=== PATIENT | female | born 2000 | race Caucasian/White ===

== ENCOUNTER 2020-12-27 07:43 | Emergency (ER) | payer OTHER ==
[~2020-12-27 07:43] MED LIST: BENTYL 20MG TAB20 MG PO; CEFUROXIME500 MG PO; IBUPROFEN800 MG PO; MACROBID 100 M100 MG PO; PRENATAL TABLE1 EAC1 PO; PRENATAL VITAM1 EAC3 PO; ZOFRAN ODT 4 MG4 MG SL; ZOFRAN4 MG PO
== END 2020-12-27 09:14 | disposition home or self-care (01) ==
LOC: ER1 07:43
DX: T17.928A Food in respiratory tract, part unspecified causing other injury, initial encounter (principal); Z88.0 Allergy status to penicillin; W45.8XXA Other foreign body or object entering through skin, initial encounter
CPT/HCPCS: 99283

== ENCOUNTER 2020-12-30 14:51 | Emergency (ER) | payer OTHER | END 2020-12-30 17:25 | disposition home or self-care (01) | LOC: ER1 14:51 | DX: F41.0 Panic disorder [episodic paroxysmal anxiety] (principal); Z20.822 Contact with and (suspected) exposure to COVID-19 | CPT/HCPCS: 0240U; 87081; 87880; 99283 ==

== ENCOUNTER 2021-08-03 17:51 | Emergency (ER) | payer OTHER ==
[2021-08-03 18:42] LABS: HEMOGLOBIN 14.6 gm/dl (12.3-15.3); RED BLOOD COUNT 4.64 M/UL (4.00-5.10); WHITE BLOOD COUNT 19.2 K/UL (4.5-11.0)
[2021-08-03 18:59] LABS: BUN/CREATININE RATIO 12 (0-10)
[2021-08-03] MEDS ORDERED: VIBRAMYCIN100 MG PO (22:58)
== END 2021-08-03 23:21 | disposition home or self-care (01) ==
LOC: ER1 17:51
PROVIDERS: Family Medicine
DX: N12 Tubulo-interstitial nephritis, not specified as acute or chronic (principal); F17.290 Nicotine dependence, other tobacco product, uncomplicated; Z88.0 Allergy status to penicillin
CPT/HCPCS: 80053; 81001; 84703; 85025; 87086; 99284

== ENCOUNTER 2021-08-23 13:38 | Inpatient (IN) | payer OTHER ==
[~2021-08-23] VITALS: Ht 157.5 cm; Wt 77.1 kg
[~2021-08-23 13:38] MED LIST changes: +VIBRAMYCIN100 MG PO
[2021-08-23 14:38] LABS: HEMOGLOBIN 13.7 gm/dl (12.3-15.3); RED BLOOD COUNT 4.43 M/UL (4.00-5.10); WHITE BLOOD COUNT 17.6 K/UL (4.5-11.0)
[2021-08-23 15:01] LABS: BUN/CREATININE RATIO 13 (0-10)
[2021-08-24 07:14] LABS: HEMOGLOBIN 11.8 gm/dl (12.3-15.3)
[2021-08-24 07:16] LABS: RED BLOOD COUNT 3.83 M/UL (4.00-5.10); WHITE BLOOD COUNT 13.1 K/UL (4.5-11.0)
[2021-08-24 07:38] LABS: BUN/CREATININE RATIO 8 (0-10)
[2021-08-25 07:38] LABS: HEMOGLOBIN 10.9 gm/dl (12.3-15.3); RED BLOOD COUNT 3.7 M/UL (4.00-5.10)
[2021-08-25 07:41] LABS: WHITE BLOOD COUNT 8.2 K/UL (4.5-11.0)
[2021-08-25 07:55] LABS: BUN/CREATININE RATIO 12 (0-10)
[2021-08-25] MEDS ORDERED: LEVOFLOXACIN750 MG PO (10:55)
== END 2021-08-25 14:43 | disposition home or self-care (01) | DRG 872 ==
LOC: ER1 13:38 → CDU 17:38 → M/S 22:43
PROVIDERS: Physician Assistant; Physician Assistant Medical; ADMIT Internal Medicine
DX: A41.9 Sepsis, unspecified organism (principal); N10 Acute pyelonephritis; E87.1 Hypo-osmolality and hyponatremia; Q89.8 Other specified congenital malformations; Z20.822 Contact with and (suspected) exposure to COVID-19; E87.6 Hypokalemia; E86.1 Hypovolemia; N20.0 Calculus of kidney; F17.210 Nicotine dependence, cigarettes, uncomplicated; Z98.891 History of uterine scar from previous surgery; Z88.0 Allergy status to penicillin
CPT/HCPCS: 80048; 80053; 80307; 81001; 83605; 84703; 85025; 86140; 87040; 87086; 93005; 96374; 96375; 99285; J1650; J1885; J1956; J2405; Q9967; U0002

== ENCOUNTER → 2022-03-21 | Emergency (ER) | payer OTHER ==
[~2022-03-21] MED LIST changes: +LEVOFLOXACIN750 MG PO
== END | disposition left against medical advice (07) ==
LOC: ER1 21:48
DX: Z53.21 Procedure and treatment not carried out due to patient leaving prior to being seen by health care provider (principal)

== ENCOUNTER 2022-04-24 18:13 | Emergency (ER) | payer OTHER ==
[2022-04-24 20:09] LABS: HEMOGLOBIN 15.5 gm/dl (12.3-15.3); RED BLOOD COUNT 5.07 M/UL (4.00-5.10); WHITE BLOOD COUNT 12.6 K/UL (4.5-11.0)
[2022-04-24 20:33] LABS: BUN/CREATININE RATIO 16 (0-10)
[2022-04-24] MEDS ORDERED: BACTRIM DS TAB1 EACH PO (21:47)
== END 2022-04-24 22:20 | disposition home or self-care (01) ==
LOC: ER1 18:13
PROVIDERS: Physician Assistant
DX: N39.0 Urinary tract infection, site not specified (principal); Z90.49 Acquired absence of other specified parts of digestive tract; Z88.0 Allergy status to penicillin; Z20.822 Contact with and (suspected) exposure to COVID-19
CPT/HCPCS: 0240U; 71046; 80053; 81001; 84703; 85025; 93005; 99284

== ENCOUNTER 2022-06-06 21:23 | Emergency (ER) | payer OTHER ==
[~2022-06-06 21:23] MED LIST changes: +BACTRIM DS TAB1 EACH PO
== END 2022-06-06 23:14 | disposition home or self-care (01) ==
LOC: ER1 21:23
DX: R11.2 Nausea with vomiting, unspecified (principal); F17.210 Nicotine dependence, cigarettes, uncomplicated
CPT/HCPCS: 99283